=== PATIENT | female | born 1990 | race Caucasian/White ===

== ENCOUNTER 2024-12-04 06:22 | Emergency (ER) | payer MEDICAID, OTHER ==
[~2024-12-04] VITALS: Ht 172.7 cm; Wt 64.0 kg
--- NOTE | 2024-12-04 07:12 | ED.PDOC ---
History of Present Illness HPI Comments 33-year-old female with PMHx Kidney Infections presents with a chief complaint of flank pain x onset this morning. Patient states that her pain is localized to her left flank, radiating into her LUQ abdomen, describes as sharp, and rates her pain a 8/10. Patient mentions that she has had kidney infections before in the past and that this pain feels similar to that. Chief Complaint: Flank Pain Time Seen by MD: 06:56 Primary Care Provider: UNKNOWN Reviewed Notes: Medications, Allergies Allergies: Coded Allergies: NO KNOWN ALLERGIES (Unverified , 12/15/10) Information Source: Patient Mode of Arrival: Ambulatory Severity: Moderate Timing: Days Duration: Since onset Prehospital treatment: None Past Medical History PAST MEDICAL HISTORY: Depression, Denies Surgical History: Denies all surgeries Family History Family History: Unknown Social History Smoker: Non-Smoker Alcohol: Denies ETOH Use Drugs: Denies Drug Use Lives In: Home Constitutional: denies: chills, diaphoresis, fatigue, fever, malaise, sweats, weakness, others EENTM: denies: blurred vision, double vision, ear bleeding, ear discharge, ear drainage, ear pain, ear ringing, eye pain, eye redness, hearing loss, mouth pain, mouth swelling, nasal discharge, nose bleeding, nose congestion, nose pain, photophobia, tearing, throat pain, throat swelling, voice changes, others Respiratory: denies: cough, hemoptysis, orthopnea, SOB at rest, shortness of breath, SOB with excertion, stridor, wheezing, others Cardiovascular: denies: chest pain, dizzy spells, diaphoresis, Dyspnea on exertion, edema, irregular heart beat, left arm pain, lightheadedness, palpitations, PND, syncope, others Gastrointestinal: denies: abdomen distended, abdominal pain, blood streaked bowels, constipated, diarrhea, dysphagia, difficulty swallowing, hematemesis, m mindy, nausea, poor appetite, poor fluid intake, rectal bleeding, rectal pain, vomiting, others Genitourinary: reports: flank pain; denies: abnormal vagina bleeding, burning, dyspareunia, dysuria, frequency, hematuria, incontinence, pain, , vagina discharge, urgency, others Neurological: denies: dizziness, fainting, headache, left sided numbness, left sided weakness, numbness, paresthesia, pre-existing deficit, right sided numbness, right sided weakness, seizure, speech problems, tingling, tremors, weakness, others Musculoskeletal: denies: back pain, gout, joint pain, joint swelling, muscle pain, muscle stiffness, neck pain, others Integumetry: denies: bruises, change in color, change in hair/nails, dryness, laceration, lesions, lumps, rash, wounds, others Allergic/Immunocompromised: denies: Difficulty Healing, Frequent Infections, Hives, Itching, others Hematologic/Lymphatic: denies: anemia, blood clots, easy bleeding, easy bruising, swollen glands, others Endocrine: denies: excessive hunger, excessive sweating, excessive thirst, excessive urination, flushing, intolerance to cold, intolerance to heat, unexplained weight gain, unexplained weight loss, others Psychiatric: denies: anxiety, bipolar disorder, depression, hopeless, panic disorder, schizophrenia, sleepless, suicidal, others All Other Systems: Reviewed and Negative Physical Exam General Appearance: Moderate Distress, Normal HEENT: Normal ENT Inspection, Pharynx Normal, TMs Normal Neck: Full Range of Motion, Non-Tender, Normal, Normal Inspection Respiratory: Chest Non-Tender, Lungs Clear, No Accessory Muscle Use, No Respiratory Distress, Normal Breath Sounds Cardiovascular: No Edema, No JVD, No Murmur, No Gallop, Normal Peripheral Pulses, Regular Rate/Rhythm Breast Exam: Deferred Gastrointestinal: No Organomegaly, Non Tender, No Pulsatile Mass, Normal Bowel Sounds, Soft Genitalia: Deferred Pelvic: Deferred Rectal: Deferred Extremities: No calf tenderness, Normal capillary refill, Normal inspection, Normal range of motion, Non-tender, No pedal edema Musculoskeletal : Apperance: Normal Neurologic: Alert, 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 Was a procedure done?: No Differential Dx Considerations may include: Urinary tract infection X-Ray, Labs, Meds, VS Vital Signs Date Time Temp Pulse Resp B/P (MAP) Pulse Ox O2 Delivery O2 Flow Rate FiO2 12/04/24 06:23 98.7 79 20 102/63 (76) 97 98.7 Lab Test 12/04/24 06:41 Range/Units Urine Color Light-yellow Yellow Urine Clarity Hazy H Clear Urine pH 5.5 5.0-9.0 Urine Specific [place] 1.011 1.001-1.035 Urine Protein Negative Negative Urine Ketones Negative Negative Urine Blood 1+ H Negative /uL Urine Nitrite Negative Negative Urine Bilirubin Negative Negative Urine Urobilinogen Normal Negative mg/dL Urine Leukocyte Esterase 2+ Negative /uL Urine RBC 3 0 - 4 /hpf Urine Microscopic WBC 61 H 0-5 /HPF Urine Squamous Epithelial Cells Few <5 /hpf Urine Bacteria Few H None Seen /hpf Urine Glucose Normal Normal mg/dL Patient alert. Complaining of urinary frequency. Vitals stable. Answering all questions. Possible urinary tract infection. Saturation pristine on room air. No sign of distress. Was given prescription of Macrobid antibiotic. Explained to the patient. Was told to follow up with her primary care physician. Was told to come back if there is any problem. Time of 1ST Reevaluation: 07:26 Reevaluation 1ST: Unchanged Patient Education/Counseling: Diagnosis, Treatment, Need For Follow Up Family Education/Counseling: No Family Present SEPSIS Sepsis Screen Date sepsis recognized/suspect: Dec 04, 2024 Time Sepsis recognized/suspect: 637 Recent Procedure: No On Antibiotic Therapy: No Respiratory Rate >20: No Heart Rate >90: No Temp<36 C (96.8 F) or >38.3 C: No SBP <90 or MAP <65 mmHG: No New Acute Mental Status Change: No Is the patient on CPAP, BIPAP,: No Vital Signs Date Time Temp Pulse Resp B/P (MAP) Pulse Ox O2 Delivery O2 Flow Rate FiO2 12/04/24 06:23 98.7 79 20 102/63 (76) 97 98.7 Departure 1 Departure Time of Disposition: 07:23 Impression: Primary Impression: Urinary tract infection Qualified Codes: N30.00 - Acute cystitis without hematuria Disposition: 01 HOME / SELF CARE / HOMELESS Condition: Good e-Prescriptions Nitrofurantoin Monohydrate Mac (Macrobid) 100 Mg Cap 100 MG PO BID for 7 Days, #14 CAP Prov: ELSY SANDERSON MD 12/04/24 Discharged With: Self Critical Care Note Critical Care Time?: No Stability Stability form required: No Heart Score Heart Score: Heart Score Response (Comments) Value History N/A 0 EKG N/A 0 Age N/A 0 Risk Factors N/A 0 Troponin N/A 0 Total 0 I personally scribed for ELSY SANDERSON MD ([email or web address]) on 12/04/24 at 07:12. Electronically submitted by Kayden Navarro ([email or web address]). ELSY SANDERSON MD Dec 04, 2024 07:12
[2024-12-04 07:22] LABS: Urine Bacteria FEW /hpf (None Seen); Urine Blood 1+ /uL (Negative); Urine Color Light-Yellow (Yellow); Urine Protein, UAD Negative (Negative); Urine Specific Gravity 1.011 (1.001-1.035); Urine Squamous Epithelial Cell FEW /hpf (<5); Urine Urobilinogen Normal (Negative); Urine WBC 61 /HPF (0-5); Urine pH 5.5 (5.0-9.0)
[2024-12-04 07:27] LABS: Urine Clarity Hazy (Clear)
[2024-12-04] MEDS ORDERED: NITR-87 PO (08:00)
[2024-12-04 08:10] VITALS: BP 118/74; PULSE 83; RESP 18; TEMP 98.1; O2SAT 98
== END 2024-12-04 08:13 | disposition home or self-care (01) ==
LOC: ER 06:22
DX: N39.0 Urinary tract infection, site not specified (principal)
CPT/HCPCS: 81001

== ENCOUNTER 2024-12-05 12:59 | Inpatient (IN) | payer MEDICAID ==
[~2024-12-05] VITALS: Ht 172.7 cm; Wt 65.0 kg
[~2024-12-05 12:59] MED LIST: NITR-87 PO
--- NOTE | 2024-12-05 13:34 | ED.PDOC ---
History of Present Illness HPI Comments 33-year-old female came to the ER stating that she has been having fever chills since last night. She was seen here for suprapubic discomfort yesterday was given prescription of antibiotic sent home for urinary tract infection. She went home took two tablets of antibiotic. States that antibiotics do not help and she started to have chills shaking since last night continues to this morning. Denies any past medical history. Denies any other symptoms. 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 Family History Family History: Unknown Social History Smoker: Non-Smoker Alcohol: Denies ETOH Use Drugs: Denies Drug Use Lives In: Home Constitutional: reports: chills, fever; denies: diaphoresis, fatigue, malaise, sweats, weakness, others EENTM: denies: blurred vision, double vision, ear bleeding, ear discharge, ear drainage, ear pain, ear ringing, eye pain, eye redness, hearing loss, mouth pain, mouth swelling, nasal discharge, nose bleeding, nose congestion, nose pain, photophobia, tearing, throat pain, throat swelling, voice changes, others Respiratory: denies: cough, hemoptysis, orthopnea, SOB at rest, shortness of breath, SOB with excertion, stridor, wheezing, others Cardiovascular: denies: chest pain, dizzy spells, diaphoresis, Dyspnea on exertion, edema, irregular heart beat, left arm pain, lightheadedness, p alpitations, PND, syncope, others Gastrointestinal: denies: abdomen distended, abdominal pain, blood streaked bowels, constipated, diarrhea, dysphagia, difficulty swallowing, hematemesis, melena, nausea, poor appetite, poor fluid intake, rectal bleeding, rectal pain, vomiting, others Genitourinary: denies: abnormal vagina bleeding, burning, dyspareunia, dysuria, flank pain, frequency, hematuria, incontinence, pain, , vagina discharge, urgency, others Neurological: denies: dizziness, fainting, headache, left sided numbness, left sided weakness, numbness, paresthesia, pre-existing deficit, right sided numbness, right sided weakness, seizure, speech problems, tingling, tremors, weakness, others Musculoskeletal: denies: back pain, gout, joint pain, joint swelling, muscle pain, muscle stiffness, neck pain, others Integumetry: denies: bruises, change in color, change in hair/nails, dryness, laceration, lesions, lumps, rash, wounds, others Allergic/Immunocompromised: denies: Difficulty Healing, Frequent Infections, Hives, Itching, others Hematologic/Lymphatic: denies: anemia, blood clots, easy bleeding, easy bruising, swollen glands, others Endocrine: denies: excessive hunger, excessive sweating, excessive thirst, excessive urination, flushing, intolerance to cold, intolerance to heat, unexplained weight gain, unexplained weight loss, others Psychiatric: denies: anxiety, bipolar disorder, depression, hopeless, panic disorder, schizophrenia, sleepless, suicidal, others Physical Exam General Appearance: Moderate Distress HEENT: Normal ENT Inspection, Pharynx Normal, TMs Normal Neck: Full Range of Motion, Non-Tender, Normal, Normal Inspection Respiratory: Chest Non-Tender, Lungs Clear, No Accessory Muscle Use, No Respiratory Distress, Normal Breath Sounds Cardiovascular: No Edema, No JVD, No Murmur, No Gallop, Normal Peripheral Pulses, Tachycardia Breast Exam: Deferred Gastrointestinal: No Organomegaly, Non Tender, No Pulsatile Mass, Normal Bowel Sounds, Soft Genitalia: Deferred Pelvic: Deferred Rectal: Deferred Extremities: No calf tenderness, Normal capillary refill, Normal inspection, Normal range of motion, Non-tender, No pedal edema Musculoskeletal : Apperance: Normal Neurologic: 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 Was a procedure done?: No Differential Dx Considerations may include: Pyelonephritis X-Ray, Labs, Meds, VS Vital Signs Date Time Temp Pulse Resp B/P (MAP) Pulse Ox O2 Delivery O2 Flow Rate FiO2 12/05/24 13:21 99.7 126 17 111/66 (81) 97 99.7 Patient alert. Complaining of fever chills. Vitals stable. Answering all questions. CT of the abdomen. Possible sepsis. Establish intravenous access. Was given fluids. Continue to monitor. Time of 1ST Reevaluation: 13:44 Reevaluation 1ST: Unchanged Patient Education/Counseling: Diagnosis, Treatment, Prognosis, Need For Follow Up Family Education/Counseling: No Family Present SEPSIS Sepsis Screen Date sepsis recognized/suspect: Dec 05, 2024 Time Sepsis recognized/suspect: 1309 Recent Procedure: No On Antibiotic Therapy: No Respiratory Rate >20: No Heart Rate >90: Yes Temp<36 C (96.8 F) or >38.3 C: No SBP <90 or MAP <65 mmHG: No New Acute Mental Status Change: No Is the patient on CPAP, BIPAP,: No Physician Orders Complete Blood Count (12/05/24 13:42) Urinalysis (12/05/24 13:42) Basic Metabolic Panel (12/05/24 13:42) Sodium Chloride 0.9% (12/05/24 13:45) Saline Lock (12/05/24 13:42) Complete Blood Count (12/05/24 13:45) Comprehensive Metabolic Panel (12/05/24 13:45) PTPTT (12/05/24 13:45) Urinalysis (12/05/24 13:45) Chest Portable (12/05/24 13:45) Accucheck (12/05/24 13:45) Lactated Ringer's (12/05/24 13:45) Blood Culture (12/05/24 13:45) Vancomycin 1gm/200ml Pm (12/05/24 13:45) Lactic Acid W/ Reflex Order (12/05/24 14:00) Lactic Acid W/ Reflex Order (12/05/24 16:00) Cefepime 2 Gm Q8hr (12/05/24 14:00) Notify Md If Map <65 Or Bp<90 (12/05/24 13:45) If Map<65 Start Vasopressor (12/05/24 13:45) Ct Ab Pel Wo Con-No Oral Or Iv (12/05/24 13:45) Vital Signs Date Time Temp Pulse Resp B/P (MAP) Pulse Ox O2 Delivery O2 Flow Rate FiO2 12/05/24 13:21 99.7 126 17 111/66 (81) 97 99.7 Departure 1 Departure Time of Disposition: 13:47 Impression: Primary Impression: Sepsis Qualified Codes: A41.9 - Sepsis, unspecified organism Additional Impression: Pyelonephritis Disposition: ADMITTED INPATIENT Admit to: Med Surg Condition: Guarded Critical Care Note Critical Care Time?: No Stability Stability form required: No Heart Score Heart Score: Heart Score Response (Comments) Value History N/A 0 EKG N/A 0 Age N/A 0 Risk Factors N/A 0 Troponin N/A 0 Total 0 ELSY SANDERSON MD Dec 05, 2024 13:34
[2024-12-05] MEDS ORDERED: SODIUM CHLORIDE 0.9% 1,000 ML IV ONE (13:45)
[2024-12-05] MEDS ORDERED: LACTATED RINGER'S 1,900 ML IV ONE (13:45)
[2024-12-05] MEDS ORDERED: CEFEPIME 1GM/ 50ML 50 ML IV SCH (14:00)
[2024-12-05] MEDS: SODIUM CHLORIDE 0.9% 1,900 ML IV ONE (14:01)
[2024-12-05 14:15] LABS: Hematocrit 37.0 % (36.0-46.0); Hemoglobin 12.2 g/dL (12.2-16.2); Mean Corpuscular Hemoglobin 28.4 pg (28.0-32.0); Mean Corpuscular Volume 85.9 fL (80.0-100.0); Nucleated Red Blood Cells % 0.0 %
[2024-12-05 14:29] LABS: Alanine Aminotransferase 11 U/L (7-40); Alkaline Phosphatase 55 U/L (46-116); Anion Gap 13 (5-15); BUN/Creatinine Ratio 9.5 (10.0-20.0); Calcium 9.8 mg/dL (8.7-10.4); Carbon Dioxide 21 mmol/L (20-31); Chloride 104 mmol/L (98-107); Sodium 138 mmol/L (136-145); Total Protein 7.9 g/dL (5.7-8.2)
[2024-12-05 14:30] LABS: Bilirubin, Total 0.8 mg/dL (0.2-1.0)
[2024-12-05 14:31] LABS: Blood Urea Nitrogen 7 mg/dL (9-23); Glucose 109 mg/dL (74-106); Potassium 3.3 mmol/L (3.5-5.1)
[2024-12-05 14:32] LABS: Albumin 4.9 g/dL (3.2-4.8)
[2024-12-05] MEDS: VANCOMYCIN 1GM/200ML PM 200 ML IV ONE (15:15)
[2024-12-05] MEDS ORDERED: VANCOMYCIN PER PHARMACY 0 MG IV SCH (15:15)
[2024-12-05] MEDS: ONDANSETRON HCL 4 MG/2 ML VIAL IV ONE (15:16)
--- NOTE | 2024-12-05 15:16 | DVH ---
CHEST RADIOGRAPH Indication: sob Technique: Single frontal view of the chest was obtained COMPARISON: None FINDINGS: Lines and Tubes: None Lungs: Clear Pleura: No effusion. No pneumothorax. Cardiomediastinal contours: Unremarkable Bones: Unremarkable IMPRESSION: No acute disease.
[2024-12-05 15:18] LABS: INR 1.14 (0.9-1.15); Partial Thromboplastin Time 27.6 SEC (24.5-34.5); Prothrombin Time 11.9 sec (9.3-11.8)
[2024-12-05 15:24] LABS: Lactic Acid w/Reflex 2.2 mmol/L (0.4-2.0)
--- NOTE | 2024-12-05 15:39 | DVH ---
Exam: CT CT AB PEL WO CON-NO ORAL OR IV History: cystitis Comparison Study: None Technique: Multidetector spiral CT of the abdomen and pelvis was performed from lung bases to pubic symphysis. Imaging was performed without IV contrast. Axial, coronal and sagittal multiplanar reform ats were obtained from the axial data set by the technologist. Radiation dose : Abdomen/Pelvis: CTDIvol 6 mGy, DLP 366 mGy*cm. Findings: Evaluation of solid organs is limited due to lack of intravenous contrast use. Lung Bases: No acute or significant lung base finding. Normal heart size. No pleural or pericardial effusion. Liver: The liver is normal in size. No focal lesions. Gallbladder and biliary Tree: Unremarkable Spleen: Unremarkable Pancreas: The pancreas is grossly normal in appearance. Adrenal Glands: Unremarkable Kidneys: Kidneys are grossly normal without calculi or hydronephrosis. Bladder: Grossly unremarkable for degree of distention. Bowel: The stomach is grossly normal in appearance. Small bowel and colon are normal in caliber and d istribution. The appendix is not visualized; however, no secondary findings of acute appendicitis salvador ntified. Ascites: Free fluid in the pelvis is likely physiologic. Lymphadenopathy: No mesenteric, retroperitoneal or periportal lymphadenopathy. Abdominal wall and Mesentery: Unremarkable. Vasculature: The visualized abdominal aorta is normal in size and caliber. Evaluation of abdominal a nd pelvic vessels is limited due to lack of intravenous contrast. Pelvic Organs: Intrauterine device in place. Musculoskeletal: No aggressive focal bony lesions, acute fractures or dislocation. IMPRESSION: 1. No acute abdominal or pelvic findings. Radiation optimization: All CT scans at this facility use at least one of these dose optimization brandy hniques: Automated exposure control mA and/or kV adjustment per patient size (includes targeted exams where dose is matched to clinical indication) or iterative reconstruction. HS:Y
[2024-12-05] MEDS: MORPHINE SULFATE 4 MG/ML SYR/VIAL IV ONE (15:43)
[2024-12-05 15:51] VITALS: PULSE 117; RESP 19; O2SAT 98
[2024-12-05] MEDS: CEFEPIME 1GM/ 50ML 50 ML IV ONE (16:09)
[2024-12-05] MEDS: ACETAMINOPHEN 500 MG TAB or CAP PO ONE (16:23)
[2024-12-05] MEDS: SODIUM CHLORIDE 0.9% 1,000 ML IV SCH (16:24)
[2024-12-05] MEDS ORDERED: NITROGLYCERIN 0.4 MG SL TAB SL PRN (18:30)
--- NOTE | 2024-12-05 18:31 | DVHHP2 ---
History of Present Illness Reason for Visit: Sepsis, unspecified organism History of Present Illness The patient is a 33-year-old female with past medical history of depression who presented to [facility] ED with complaint of suprapubic pain. Patient reports that she has been experiencing fever, chills, nausea, vomiting, getting worse that prompted this visit. Patient was here in our facility yesterday with similar symptoms and was given prescription of antibiotics and sent home for urinary tract infection. However, she states antibiotic is not helping with her symptoms. Patient was seen and evaluated in the ED, laboratory data shows WBC 20.7, platelets 291, sodium 138, potassium 3.3, BUN 7, creatinine 0.74, glucose 109, calcium 9.8, albumin 4.9, lactic acid 2.2, blood pressure 75/42 trending up to 93/55, heart rate 110, temperature 100.6 F trending down to 98.8 F, O2 saturation 98% on room air. Abdomen/pelvis CT showed no acute abdominal or pelvic findings. Patient was started on IV antibiotic regimen vancomycin, please see medication orders section in the computer. On my assessment, patient denied chest pain, no headache, no dizziness, no diaphoresis, no shortness of breaths, no abdominal pain, nausea, or vomiting at this moment, no fever, no chills at this moment. Patient was admitted for further evaluation and medical management. Past Medical History Depression Past Surgical History Denies all surgeries Family History Reviewed, noncontributory to the management of this case. Past Social History The patient lives at home, denies smoking, alcohol or illicit drugs abuse. Review of Systems Constitutional: Yes: Fever, Chills, Weakness; No: Sweats, Malaise, Other Eyes: No: Pain, Vision change, Conjunctivae inflammation, Eyelid inflammation, Other, Redness ENT: No: Ear pain, Ear discharge, Nose pain, Nose discharge, Nose congestion, Mouth pain, Mouth swelling, Throat pain, Throat swelling, Other Respiratory: No: Cough, Dry, Shortness of breath, SOB with excertion, Wheezing, Hemoptysis, Pleuritic Pain, Sputum, Wheezing, Other Cardiovascular: No: Chest Pain, Palpitations, Orthopnea, Paroxysmal Noc. Dyspnea, Edema, Lt Headedness, Other Gastrointestinal: Nausea, Vomiting, Abdominal Pain; No: Diarrhea, Constipation, Melena, Hematochezia, Other Genitourinary: No Dysuria, No Frequency, No Incontinence, No Hematuria, No Retention, No Other Musculoskeletal: No: other, neck pain, shoulder pain, arm pain, back pain, hand pain, leg pain, foot pain Skin: No: Rash, Lesions, Jaundice, Bruising, Other Neurological: No: Weakness, Numbness, Incoordination, Change in speech, Confusion, Seizures, Other Allergies: Coded Allergies: NO KNOWN ALLERGIES (Unverified , 12/15/10) Medications Current Medications Medications Dose Ordered Sig/Ang Route Start Time Stop Time Status Last Admin Dose Admin Cefepime HCl 50 ml @ 12.5 mls/hr Q8H IV 12/05/24 22:00 Sodium Chloride 1,000 ml @ 60 mls/hr [id number] IV 12/05/24 15:15 12/05/24 16:24 60 MLS/HR Acetaminophen/ Hydrocodone Bitart 1 tab Q4HP PRN PO 12/05/24 15:15 Ondansetron HCl 4 mg Q4HP PRN IV 12/05/24 15:15 Docusate Sodium 100 mg BIDPRN PRN PO 12/05/24 15:15 Acetaminophen 650 mg Q6HP PRN PO 12/05/24 15:15 Vancomycin HCl 0 ml @ 0 mls/hr UD IV 12/05/24 15:15 Vancomycin HCl 150 ml @ 150 mls/hr Q8H IV 12/05/24 20:00 Exam Vital Signs Vital Signs Date Time Temp Pulse Resp B/P (MAP) Pulse Ox O2 Delivery O2 Flow Rate FiO2 12/05/24 18:07 98.8 107 17 93/55 (68) 97 98.8 12/05/24 15:51 Room Air* 0 21 General Appearance: Alert, Oriented X3, Cooperative, No acute distress HEENT: Atraumatic, PERRLA, EOMI, Mucous membr. moist/pink Respiratory: Clear to auscultation, Normal air movement Cardiovascular: Regular rate, Normal S1, Normal S2, No murmurs Abdominal: Normal bowel sounds, Soft, No tenderness, No hepatospenomegaly, No masses Extremities: No clubbing, No cyanosis, No edema, Normal pulses, No tenderness/swelling Skin: No rashes, No breakdown, No significant lesion Neuro: Normal speech, Normal tone, Sensation intact, Cranial nerves 3-12 NL, Reflexes 2+, Other (Generalized weakness) Psych/Mental Status: Mental status NL, Mood NL Labs/Xrays Labs Test 12/05/24 17:16 12/05/24 14:49 12/05/24 13:59 Range/Units Lactic Acid Level 0.7 0.4-2.0 mmol/L Prothrombin Time 11.9 H 9.3-11.8 sec Prothrombin Time INR 1.14 0.9-1.15 Activated Partial Thromboplast Time 27.6 24.5-34.5 SEC White Blood Count 20.7 H 4.4-10.8 10^3/uL Red Blood Count 4.30 4.0-5.20 10^6/uL Hemoglobin 12.2 12.2-16.2 g/dL Hematocrit 37.0 36.0-46.0 % Mean Corpuscular Volume 85.9 80.0-100.0 fL Mean Corpuscular Hemoglobin 28.4 28.0-32.0 pg Mean Corpuscular Hemoglobin Concent 33.1 32.0-36.0 g/dL Red Cell Distribution Width 15.6 H 11.8-14.3 % Platelet Count 291 140-450 10^3/uL Mean Platelet Volume 7.4 6.9-10.8 fL Neutrophils (%) (Auto) 90.1 H 37.0-80.0 % Lymphocytes (%) (Auto) 3.7 L 10.0-50.0 % Monocytes (%) (Auto) 6.0 0.0-12.0 % Eosinophils (%) (Auto) 0.0 0.0-7.0 % Basophils (%) (Auto) 0.2 0.0-2.0 % Neutrophils # (Auto) 18.7 H 1.6-8.6 10 ^3/uL Lymphocytes # (Auto) 0.8 0.4-5.4 10 ^3/uL Monocytes # (Auto) 1.2 0-1.3 10 ^3/uL Eosinophils # (Auto) 0 0-0.8 10 ^3/uL Basophils # (Auto) 0 0-0.2 10 ^3/uL Nucleated Red Blood Cells 0.0 % Sodium Level 138 136-145 mmol/L Potassium Level 3.3 L 3.5-5.1 mmol/L Chloride Level 104 98-107 mmol/L Carbon Dioxide Level 21 20-31 mmol/L Anion Gap 13 5-15 Blood Urea Nitrogen 7 L 9-23 mg/dL Creatinine 0.74 0.550-1.02 mg/dL Glomerular Filtration Rate Calc 111 >90 mL/min BUN/Creatinine Ratio 9.5 L 10.0-20.0 Serum Glucose 109 H 74-106 mg/dL Calcium Level 9.8 8.7-10.4 mg/dL Total Bilirubin 0.8 0.2-1.0 mg/dL Aspartate Amino Transferase (AST) 16 13-40 U/L Alanine Aminotransferase (ALT) 11 7-40 U/L Alkaline Phosphatase 55 46-116 U/L Total Protein 7.9 5.7-8.2 g/dL Albumin 4.9 H 3.2-4.8 g/dL PATIENT: JEANNE GALARZA ACCT: [id number] UNIT: [id number] : 1990 LOC: ER ROOM / BED: / AGE / SEX: 33 / F ADM STATUS: REG ER SERVICE 1345 ORDERING PHYSICIAN: ELSY SANDERSON MD PROCEDURE(s): ABPL - CT AB PEL WO CON-NO ORAL OR IV REASON: cystitis ORDER NUMBER(s): [id number], ACCESSION NUMBER(s): [id number] Exam: CT CT AB PEL WO CON-NO ORAL OR IV History: cystitis Comparison Study: None Technique: Multidetector spiral CT of the abdomen and pelvis was performed from lung bases to pubic symphysis. Imaging was performed without IV contrast. Axial, coronal and sagittal multiplanar reformats were obtained from the axial data set by the technologist. Radiation dose : Abdomen/Pelvis: CTDIvol 6 mGy, DLP 366 mGy*cm. Findings: Evaluation of solid organs is limited due to lack of intravenous contrast use. Lung Bases: No acute or significant lung base finding. Normal heart size. No pleural or pericardial effusion. Liver: The liver is normal in size. No focal lesions. Gallbladder and biliary Tree: Unremarkable Spleen: Unremarkable Pancreas: The pancreas is grossly normal in appearance. Adrenal Glands: Unremarkable Kidneys: Kidneys are grossly normal without calculi or hydronephrosis. Bladder: Grossly unremarkable for degree of distention. Bowel: The stomach is grossly normal in appearance. Small bowel and colon are normal in caliber and distribution. The appendix is not visualized; however, no secondary findings of acute appendicitis identified. Ascites: Free fluid in the pelvis is likely physiologic. Lymphadenopathy: No mesenteric, retroperitoneal or periportal lymphadenopathy. Abdominal wall and Mesentery: Unremarkable. Vasculature: The visualized abdominal aorta is normal in size and caliber. Ev aluation of abdominal and pelvic vessels is limited due to lack of intravenous contrast. Pelvic Organs: Intrauterine device in place. Musculoskeletal: No aggressive focal bony lesions, acute fractures or dislocation. IMPRESSION: 1. No acute abdominal or pelvic findings. ORDERING PHYSICIAN: ELSY SANDERSON MD PROCEDURE(s): CXRP - CHEST PORTABLE REASON: sob ORDER NUMBER(s): [id number], ACCESSION NUMBER(s): [id number] CHEST RADIOGRAPH Indication: sob Technique: Single frontal view of the chest was obtained COMPARISON: None FINDINGS: Lines and Tubes: None Lungs: Clear Pleura: No effusion. No pneumothorax. Cardiomediastinal contours: Unremarkable Bones: Unremarkable IMPRESSION: No acute disease. Assessment/Plan Assessment/Plan Sepsis, unspecified organism Hypokalemia Intractable nausea and vomiting Plan 1. Admit to telemetry unit 2. Breathing treatment 3. Pain control management 4. IV antibiotic management 5. Management of fluids and electrolytes 6. Consultation for hospitalist 7. Diagnostic test abdomen/pelvis CT 8. DVT prophylaxis-on SCDs 9. Repeat labs CBC, CMP in a.m. 10. Home medication reviewed and reconciled 11. Continue with current medical management 12. Treatment plan discussed with patient and RN. Patient verbalized understanding. Plan discussed with: Patient, Other (RN) My Orders Orders - MAHESH FINCH DNP Procedure Category Date Status Time Allergies CHLOE 12/05/24 In Process 15:09 Code Status CODE 12/05/24 Transmitted 15:09 Sodium Chloride 0.9% PHA 12/05/24 In Process 15:15 Oxygen Per Hour RT 12/05/24 Transmitted 15:09 Hydrocodone-Acet PHA 12/05/24 In Process 5/325mg Tab ([place] 15:15 Ondansetron Hcl PHA 12/05/24 In Process (Zofran) 15:15 Docusate Sodium PHA 12/05/24 In Process Capsule ([place]ace 15:15 Complete Blood Count LAB 12/06/24 Verified 04:00 Comprehensive LAB 12/06/24 Verified Metabolic Panel 04:00 Condition: Serious CHLOE 12/05/24 In Process 15:09 Acetaminophen Tablet [facility] 12/05/24 In Process (Tylenol Tablet) 15:15 Clear Liq Diet DIET 12/05/24 Transmitted Dinner Bedrest With Bathroom [facility] [place] 12/05/24 In Process Privileg 15:09 Sequential CHLOE 12/05/24 In Process Compression Device Vancomycin Per PHA 12/05/24 In Process Pharmacy 15:15 Vancomycin [facility] 12/05/24 In Process 750mg/150ml 20:00 Vancomycin,Trough LAB 12/06/24 Verified 11:00 Problem List: (1) Sepsis, unspecified organism (2) Hypokalemia (3) Intractable nausea and vomiting Date of Service: Dec 05, 2024 Billing Provider: MAHESH FINCH DNP Common Visit Codes: [id number] INP/OBS CARE (HIGH) MAHESH FINCH DNP Dec 05, 2024 18:31
[2024-12-05 18:48] LABS: Urine Protein, UAD Negative (Negative)
[2024-12-05 19:55] VITALS: O2SAT 95
[2024-12-05] MEDS: VANCOMYCIN 750mg/150ml 150 ML IV SCH (20:00)
[2024-12-05] MEDS: HYDROcodone-ACET 5/325MG TAB PO PRN (20:50)
[2024-12-05] MEDS: ACETAMINOPHEN 325 MG TAB PO PRN (20:50)
[2024-12-05] MEDS: POTASSIUM CHL 20 Meq TABLET PO ONE (23:50)
[2024-12-05] MEDS: CEFEPIME 1GM/ 50ML 50 ML IV SCH (23:50)
[2024-12-06] VITALS (7 sets, daily range): BP systolic 102–116; BP diastolic 61–74; PULSE 60–113; RESP 14–19; TEMP 98–101.7; O2SAT 98–99
[2024-12-06] MEDS: MORPHINE SULFATE INJ 2 MG/ml SYRG IV PRN (01:34)
[2024-12-06] MEDS: ONDANSETRON HCL 4 MG/2 ML VIAL IV PRN (01:35)
[2024-12-06 04:58] LABS: Hematocrit 32.7 % (36.0-46.0); Hemoglobin 11.0 g/dL (12.2-16.2); Mean Corpuscular Hemoglobin 28.7 pg (28.0-32.0); Mean Corpuscular Volume 85.4 fL (80.0-100.0); Nucleated Red Blood Cells % 0.0 %
[2024-12-06 05:17] LABS: Alanine Aminotransferase 10 U/L (7-40); Albumin 3.8 g/dL (3.2-4.8); Alkaline Phosphatase 50 U/L (46-116); Anion Gap 7 (5-15); BUN/Creatinine Ratio 10.9 (10.0-20.0); Carbon Dioxide 23 mmol/L (20-31); Potassium 3.7 mmol/L (3.5-5.1); Sodium 140 mmol/L (136-145); Total Protein 6.2 g/dL (5.7-8.2)
[2024-12-06 05:18] LABS: Bilirubin, Total 0.6 mg/dL (0.2-1.0)
[2024-12-06 05:28] LABS: Blood Urea Nitrogen 6 mg/dL (9-23); Calcium 8.1 mg/dL (8.7-10.4); Chloride 110 mmol/L (98-107); Glucose 115 mg/dL (74-106)
--- NOTE | 2024-12-06 17:06 | DVHPN2 ---
Subjective Patient reports having generalized weakness. Reviewed: Care Plan, H&P, Labs, Medications Changes from previous H/P or p: No Changes General: Per HPI Eyes: No Pain, No Vision change, No Conjunctivae inflammation, No Eyelid inflammation, No Other, No Redness ENT: No Ear pain, No Ear discharge, No Nose pain, No Nose discharge, No Nose congestion, No Mouth pain, No Mouth swelling, No Throat pain, No Throat swelling, No Other Cardiovascular: No Chest Pain, No Palpitations, No Orthopnea, No Paroxysmal Noc. Dyspnea, No Edema, No Lt Headedness, No Other Respiratory: No Cough, No Dry, No Shortness of breath, No SOB with excertion, No Wheezing, No Hemoptysis, No Pleuritic Pain, No Sputum, No Other Gastrointestinal: Nausea, Vomiting, Abdominal Pain; No Diarrhea, No Constipation, No Melena, No Hematochezia, No Other Genitourinary: No Dysuria, No Frequency, No Incontinence, No Hematuria, No Retention, No Other Musculoskeletal: No other, No neck pain, No shoulder pain, No arm pain, No back pain, No hand pain, No leg pain, No foot pain Skin: No Rash, No Lesions, No Jaundice, No Bruising, No Other Objective Vitals Vital Signs Date Time Temp Pulse Resp B/P (MAP) Pulse Ox O2 Delivery O2 Flow Rate FiO2 12/06/24 10:49 98.0 60 18 102/62 (75) 98 98.0 12/06/24 08:00 Room Air* 0 21 Intake/Output Intake and Output 12/06/24 07:00 Intake Total 2330 ml Balance 2330 ml Intake IV Total 2330 ml General Appearance: Alert, Oriented X3, Cooperative, No acute distress HEENT: Atraumatic, PERRLA Lungs: Normal air movement Cardiovascular: Normal S1, Normal S2 Abdomen: Normal bowel sounds, Soft, No tenderness, No hepatospenomegaly Musculoskeletal: Normal sensory function, Normal motor function Neuro: Normal speech Skin: Dry, Intact Psych/Mental Status: Mental status NL, Mood NL Medications Current Medications Medications Dose Ordered Sig/Ang Route Start Time Stop Time Status Last Admin Dose Admin Cefepime HCl 50 ml @ 12.5 mls/hr Q8H IV 12/05/24 22:00 12/06/24 13:53 12.5 MLS/HR Sodium Chloride 1,000 ml @ 60 mls/hr [id number] IV 12/05/24 15:15 12/05/24 16:24 60 MLS/HR Acetaminophen/ Hydrocodone Bitart 1 tab Q4HP PRN PO 12/05/24 15:15 12/06/24 06:48 1 TAB Ondansetron HCl 4 mg Q4HP PRN IV 12/05/24 15:15 12/06/24 14:39 4 MG Docusate Sodium 100 mg BIDPRN PRN PO 12/05/24 15:15 Acetaminophen 650 mg Q6HP PRN PO 12/05/24 15:15 12/06/24 06:48 650 MG Vancomycin HCl 0 ml @ 0 mls/hr UD IV 12/05/24 15:15 Vancomycin HCl 150 ml @ 150 mls/hr Q8H IV 12/05/24 20:00 12/06/24 12:12 150 MLS/HR Nitroglycerin 0.4 mg Q5MINP PRN SL 12/05/24 18:30 Morphine Sulfate 2 mg Q30M PRN IV 12/05/24 18:30 12/06/24 06:51 2 MG Laboratory Results Laboratory Tests 12/06/24 04:31 Chemistry Test 12/06/24 04:31 Albumin 3.8 g/dL (3.2-4.8) Calcium Level 8.1 mg/dL (8.7-10.4) L Total Protein 6.2 g/dL (5.7-8.2) LFT Test 12/06/24 04:31 Alanine Aminotransferase (ALT) 10 U/L (7-40) Alkaline Phosphatase 50 U/L (46-116) Aspartate Amino Transferase (AST) 11 U/L (13-40) L Total Bilirubin 0.6 mg/dL (0.2-1.0) Urinalysis Test 12/05/24 18:05 Urine Color Light-yellow (Yellow) Urine Clarity Clear (Clear) Urine pH 6.0 (5.0-9.0) Urine Specific [place] 1.011 (1.001-1.035) Urine Protein Negative (Negative) Urine Ketones 3+ (Negative) H Urine Blood Negative /uL (Negative) Urine Nitrite Negative (Negative) Urine Bilirubin Negative (Negative) Urine Urobilinogen Normal mg/dL (Negative) Urine Leukocyte Esterase Negative /uL (Negative) Urine RBC 4 /hpf (0 - 4) Urine Microscopic WBC 4 /HPF (0-5) Urine Squamous Epithelial Cells Few /hpf (<5) Urine Bacteria Few /hpf (None Seen) H Urine Mucus Few (None Seen) Urine Glucose Normal mg/dL (Normal) Microbiology Microbiology Date/Time Source Procedure Growth Status 12/05/24 14:05 Blood Blood Culture - Preliminary NO GROWTH AFTER 24 HOURS OF INCUBATION. Resulted Labs and/or images reviewed: Labs reviewed by me, Image(s) reviewed by me Assessment/Plan Assessment/Plan Impression: -sepsis, unknown etiology -? UTI/pyelonephritis -? Bacteremia. Rule out contamination on redraw -? Drug reaction to Macrobid Plan: -continue empiric antibiotic therapy -repeat blood culture -UDS -IV hydration -repeat labs in a.m. Total time spent with patient discussing and formulating plan of care: 35 minutes. This medical document was created using an electronic medical record system with [employer] dictation system. Although this document has been carefully reviewed, there may still be some phonetic and typographical errors. These areas are purely typographical due to imperfections of the software programs, and do not reflect any compromise in the patient's medical care. Plan discussed with: Patient, Other (RN) My Orders Orders - CARITO LIRIANO NP Procedure Category Date Status Time Regular Diet DIET 12/06/24 Transmitted Lunch Date of Service: Dec 06, 2024 Billing Provider: CARITO LIRIANO NP Common Visit Codes: [id number] INP/OBS CARE(HIGH) CARITO LIRIANO NP Dec 06, 2024 17:06
[2024-12-06] MEDS: SODIUM CHLORIDE 0.9% 1,000 ML IV SCH (19:27)
[2024-12-06] MEDS: DOCUSATE SOD 100 MG CAP PO PRN (20:10)
[2024-12-07] VITALS (8 sets, daily range): BP systolic 95–116; BP diastolic 49–73; PULSE 70–100; RESP 14–16; TEMP 97.6–99.1; O2SAT 96–100
[2024-12-07 06:31] LABS: Hematocrit 31.2 % (36.0-46.0); Hemoglobin 10.3 g/dL (12.2-16.2); Mean Corpuscular Hemoglobin 28.4 pg (28.0-32.0); Mean Corpuscular Volume 85.5 fL (80.0-100.0); Nucleated Red Blood Cells % 0.0 %
--- NOTE | 2024-12-07 10:29 | DVHPN2 ---
Subjective Patient reports having generalized weakness. Reviewed: Care Plan, H&P, Labs, Medications Changes from previous H/P or p: No Changes General: Per HPI Eyes: No Pain, No Vision change, No Conjunctivae inflammation, No Eyelid inflammation, No Other, No Redness ENT: No Ear pain, No Ear discharge, No Nose pain, No Nose discharge, No Nose congestion, No Mouth pain, No Mouth swelling, No Throat pain, No Throat swelling, No Other Cardiovascular: No Chest Pain, No Palpitations, No Orthopnea, No Paroxysmal Noc. Dyspnea, No Edema, No Lt Headedness, No Other Respiratory: No Cough, No Dry, No Shortness of breath, No SOB with excertion, No Wheezing, No Hemoptysis, No Pleuritic Pain, No Sputum, No Other Gastrointestinal: Nausea, Vomiting, Abdominal Pain; No Diarrhea, No Constipation, No Melena, No Hematochezia, No Other Genitourinary: No Dysuria, No Frequency, No Incontinence, No Hematuria, No Retention, No Other Musculoskeletal: No other, No neck pain, No shoulder pain, No arm pain, No back pain, No hand pain, No leg pain, No foot pain Skin: No Rash, No Lesions, No Jaundice, No Bruising, No Other Objective Vitals Vital Signs Date Time Temp Pulse Resp B/P (MAP) Pulse Ox O2 Delivery O2 Flow Rate FiO2 12/07/24 09:00 97.6 100 16 111/71 (84) 100 97.6 12/07/24 08:00 Room Air* 0 21 Intake/Output Intake and Output 12/07/24 07:00 Intake Total 1380 ml Output Total 2 ml Balance 1378 ml Intake Oral 1000 ml IV Total 380 ml Output Urine Total 2 ml # Voids 2 General Appearance: Alert, Oriented X3, Cooperative, No acute distress HEENT: Atraumatic, PERRLA Lungs: Normal air movement Cardiovascular: Normal S1, Normal S2 Abdomen: Normal bowel sounds, Soft, No tenderness, No hepatospenomegaly Musculoskeletal: Normal sensory function, Normal motor function Neuro: Normal speech Skin: Dry, Intact Psych/Mental Status: Mental status NL, Mood NL Medications Current Medications Medications Dose Ordered Sig/Ang Route Start Time Stop Time Status Last Admin Dose Admin Cefepime HCl 50 ml @ 12.5 mls/hr Q8H IV 12/05/24 22:00 12/07/24 06:03 12.5 MLS/HR Acetaminophen/ Hydrocodone Bitart 1 tab Q4HP PRN PO 12/05/24 15:15 12/07/24 06:10 1 TAB Ondansetron HCl 4 mg Q4HP PRN IV 12/05/24 15:15 12/06/24 14:39 4 MG Docusate Sodium 100 mg BIDPRN PRN PO 12/05/24 15:15 12/06/24 20:10 100 MG Acetaminophen 650 mg Q6HP PRN PO 12/05/24 15:15 12/06/24 16:49 650 MG Vancomycin HCl 0 ml @ 0 mls/hr UD IV 12/05/24 15:15 Vancomycin HCl 150 ml @ 150 mls/hr Q8H IV 12/05/24 20:00 12/07/24 04:26 150 MLS/HR Nitroglycerin 0.4 mg Q5MINP PRN SL 12/05/24 18:30 Morphine Sulfate 2 mg Q30M PRN IV 12/05/24 18:30 12/06/24 06:51 2 MG Sodium Chloride 1,000 ml @ 100 mls/hr Q10H IV 12/06/24 17:00 12/07/24 03:00 100 MLS/HR Laboratory Results Laboratory Tests 12/06/24 04:31 12/07/24 05:54 Urinalysis Test 12/05/24 18:05 Urine Color Light-yellow (Yellow) Urine Clarity Clear (Clear) Urine pH 6.0 (5.0-9.0) Urine Specific [place] 1.011 (1.001-1.035) Urine Protein Negative (Negative) Urine Ketones 3+ (Negative) H Urine Blood Negative /uL (Negative) Urine Nitrite Negative (Negative) Urine Bilirubin Negative (Negative) Urine Urobilinogen Normal mg/dL (Negative) Urine Leukocyte Esterase Negative /uL (Negative) Urine RBC 4 /hpf (0 - 4) Urine Microscopic WBC 4 /HPF (0-5) Urine Squamous Epithelial Cells Few /hpf (<5) Urine Bacteria Few /hpf (None Seen) H Urine Mucus Few (None Seen) Urine Glucose Normal mg/dL (Normal) Microbiology Microbiology Date/Time Source Procedure Growth Status 12/05/24 14:05 Blood Blood Culture - Preliminary Resulted Labs and/or images reviewed: Labs reviewed by me, Image(s) reviewed by me Assessment/Plan Assessment/Plan Impression: -sepsis, secondary to UTI -complicated cystitis -bacteremia with alpha hemolytic strep -? Drug reaction to Macrobid Plan: -events: Patient with fevers yesterday evening. White blood cell count improving. -repeat blood culture pending. Initial blood culture positive in both tubes with alpha hemolytic strep. -UDS pending -stop vancomycin, continue cefepime -IV hydration -repeat labs in a.m. Total time spent with patient discussing and formulating plan of care: 35 minutes. This medical document was created using an electronic medical record system with [employer] dictation system. Although this document has been carefully reviewed, there may still be some phonetic and typographical errors. These areas are purely typographical due to imperfections of the software programs, and do not reflect any compromise in the patient's medical care. Plan discussed with: Patient, Other (RN) My Orders Orders - CARITO LIRIANO NP Procedure Category Date Status Time Regular Diet DIET 12/06/24 Transmitted Lunch Sodium Chloride 0.9% PHA 12/06/24 In Process 17:00 Blood Culture BLAKE 12/06/24 In Process 16:48 Drug Screen LAB 12/06/24 Logged 16:48 Date of Service: Dec 07, 2024 Billing Provider: CARITO LIRIANO NP Common Visit Codes: 89151-FSF/OBS DISCH DAY >30min CARITO LIRIANO NP Dec 07, 2024 10:29
[2024-12-07 13:07] LABS: Amphetamine Screen, Urine Neg (NEGATIVE); Barbiturate Scree,Urine Neg (NEGATIVE); Benzodiazephine Screen, Urine Neg (NEGATIVE); Opiate Scree,Urine Neg (NEGATIVE)
[2024-12-07 13:08] LABS: Cocaine Screen, Urine Neg (NEGATIVE); Phencyclidine Screen, Urine Neg (NEGATIVE)
[2024-12-07 13:09] LABS: Cannabinoid Screen, Urine Neg (NEGATIVE)
[2024-12-07] MEDS ORDERED: InsuLIN REG 1unit/0.01ml Soln (100units/ml) IV ONE (17:00)
[2024-12-07] MEDS ORDERED: FLUO60TA7 PO (18:50)
[2024-12-08 01:00] VITALS: BP 108/65; PULSE 88; RESP 14; TEMP 98.6; O2SAT 97
[2024-12-08 05:00] VITALS: BP 107/61; PULSE 75; RESP 14; TEMP 99.2; O2SAT 97
[2024-12-08 06:30] LABS: Hematocrit 33.4 % (36.0-46.0); Hemoglobin 11.1 g/dL (12.2-16.2); Mean Corpuscular Hemoglobin 28.5 pg (28.0-32.0); Mean Corpuscular Volume 85.5 fL (80.0-100.0); Nucleated Red Blood Cells % 0.0 %
[2024-12-08 06:43] LABS: Anion Gap 7 (5-15); Carbon Dioxide 28 mmol/L (20-31); Chloride 106 mmol/L (98-107); Potassium 3.6 mmol/L (3.5-5.1); Sodium 141 mmol/L (136-145)
[2024-12-08 06:44] LABS: Calcium 9.0 mg/dL (8.7-10.4)
[2024-12-08 06:49] LABS: Glucose 91 mg/dL (74-106)
[2024-12-08 06:54] LABS: BUN/Creatinine Ratio 8.9 (10.0-20.0); Blood Urea Nitrogen < 5 mg/dL (9-23)
[2024-12-08 08:00] VITALS: PULSE 65
[2024-12-08 09:00] VITALS: BP 98/70; PULSE 75; RESP 14; TEMP 99.1; O2SAT 96
[2024-12-08 13:00] VITALS: BP 108/72; PULSE 83; RESP 12; TEMP 98.1; O2SAT 100
[2024-12-08] MEDS ORDERED: CEFD300C2 PO (14:35)
--- NOTE | 2024-12-08 14:38 | DVHDS2 ---
Discharge Summary Date of Admission Dec 05, 2024 at 18:30 Date of Discharge: Dec 08, 2024 Admitting Diagnosis Sepsis unspecified organism Labs/Diagnostic Data: Laboratory Results Test 12/08/24 05:46 12/07/24 12:47 12/06/24 11:22 12/06/24 04:31 White Blood Count 6.0 10^3/uL (4.4-10.8) Red Blood Count 3.91 10^6/uL (4.0-5.20) Hemoglobin 11.1 g/dL (12.2-16.2) Hematocrit 33.4 % (36.0-46.0) Mean Corpuscular Volume 85.5 fL (80.0-100.0) Mean Corpuscular Hemoglobin 28.5 pg (28.0-32.0) Mean Corpuscular Hemoglobin Concent 33.3 g/dL (32.0-36.0) Red Cell Distribution Width 15.4 % (11.8-14.3) Platelet Count 318 10^3/uL (140-450) Mean Platelet Volume 7.6 fL (6.9-10.8) Neutrophils (%) (Auto) 66.7 % (37.0-80.0) Lymphocytes (%) (Auto) 20.1 % (10.0-50.0) Monocytes (%) (Auto) 10.7 % (0.0-12.0) Eosinophils (%) (Auto) 1.7 % (0.0-7.0) Basophils (%) (Auto) 0.8 % (0.0-2.0) Neutrophils # (Auto) 4.0 10 ^3/uL (1.6-8.6) Lymphocytes # (Auto) 1.2 10 ^3/uL (0.4-5.4) Monocytes # (Auto) 0.6 10 ^3/uL (0-1.3) Eosinophils # (Auto) 0.1 10 ^3/uL (0-0.8) Basophils # (Auto) 0.1 10 ^3/uL (0-0.2) Nucleated Red Blood Cells 0.0 % Sodium Level 141 mmol/L (136-145) Potassium Level 3.6 mmol/L (3.5-5.1) Chloride Level 106 mmol/L (98-107) Carbon Dioxide Level 28 mmol/L (20-31) Anion Gap 7 (5-15) Blood Urea Nitrogen < 5 mg/dL (9-23) Creatinine 0.56 mg/dL (0.550-1.02) Glomerular Filtration Rate Calc 124 mL/min (>90) BUN/Creatinine Ratio 8.9 (10.0-20.0) Serum Glucose 91 mg/dL (74-106) Calcium Level 9.0 mg/dL (8.7-10.4) Urine Opiates Screen Neg (NEGATIVE) Urine Fentanyl Screen Neg (NEGATIVE) Urine Barbiturates Screen Neg (NEGATIVE) Urine Phencyclidine Screen Neg (NEGATIVE) Urine Amphetamines Screen Neg (NEGATIVE) Urine Benzodiazepines Screen Neg (NEGATIVE) Urine Cocaine Screen Neg (NEGATIVE) Urine Cannabinoids Screen Neg (NEGATIVE) Vancomycin Level Trough 3.3 ug/mL (5-10) Total Bilirubin 0.6 mg/dL (0.2-1.0) Aspartate Amino Transferase (AST) 11 U/L (13-40) Alanine Aminotransferase (ALT) 10 U/L (7-40) Alkaline Phosphatase 50 U/L (46-116) Total Protein 6.2 g/dL (5.7-8.2) Albumin 3.8 g/dL (3.2-4.8) Test 12/05/24 18:05 12/05/24 17:16 12/05/24 14:49 Urine Color Light-yellow (Yellow) Urine Clarity Clear (Clear) Urine pH 6.0 (5.0-9.0) Urine Specific [place] 1.011 (1.001-1.035) Urine Protein Negative (Negative) Urine Ketones 3+ (Negative) Urine Blood Negative /uL (Negative) Urine Nitrite Negative (Negative) Urine Bilirubin Negative (Negative) Urine Urobilinogen Normal mg/dL (Negative) Urine Leukocyte Esterase Negative /uL (Negative) Urine RBC 4 /hpf (0 - 4) Urine Microscopic WBC 4 /HPF (0-5) Urine Squamous Epithelial Cells Few /hpf (<5) Urine Bacteria Few /hpf (None Seen) Urine Mucus Few (None Seen) Urine Glucose Normal mg/dL (Normal) Lactic Acid Level 0.7 mmol/L (0.4-2.0) Prothrombin Time 11.9 sec (9.3-11.8) Prothrombin Time INR 1.14 (0.9-1.15) Activated Partial Thromboplast Time 27.6 SEC (24.5-34.5) Other Laboratory Tests 12/08/24 05:46 Brief Hx & Hospital Course: History of Present Illness The patient is a 33-year-old female with past medical history of depression who presented to [facility] ED with complaint of suprapubic pain. Patient reports that she has been experiencing fever, chills, nausea, vomiting, getting worse that prompted this visit. Patient was here in our facility yesterday with similar symptoms and was given prescription of antibiotics and sent home for urinary tract infection. However, she states antibiotic is not helping with her symptoms. Patient was seen and evaluated in the ED, laboratory data shows WBC 20.7, platelets 291, sodium 138, potassium 3.3, BUN 7, creatinine 0.74, glucose 109, calcium 9.8, albumin 4.9, lactic acid 2.2, blood pressure 75/42 trending up to 93/55, heart rate 110, temperature 100.6 F trending down to 98.8 F, O2 saturation 98% on room air. Abdomen/pelvis CT showed no acute abdominal or pelvic findings. Patient was started on IV antibiotic regimen vancomycin, please see medication orders section in the computer. On my assessment, patient denied chest pain, no headache, no dizziness, no diaphoresis, no shortness of breaths, no abdominal pain, nausea, or vomiting at this moment, no fever, no chills at this moment. Patient was admitted for further evaluation and medical management. Course of hospitalization: Patient was given IV hydration, empiric antibiotic therapy with vancomycin and Rocephin. Patient grew alpha hemolytic strep in initial blood culture. Patient had antibiotics deescalated to Rocephin as sole coverage. Patient had repeat blood culture which was negative for any growth. Patient has been afebrile, as well as having resolution of leukocytosis. Patient will be discharged home and continued on antibiotic therapy with cefdinir 300 mg p.o. b.i.d. for an additional seven days. She will follow up with the discharge Clinic in one week. Patient was agreeable with discharge plan. All questions answered. Physical examination General: Alert and Oriented x3. No acute distress. Well-nourished. Eyes: EOMI. Anicteric. HENT: Moist mucous membranes. Lungs: Clear to auscultation bilaterally. No accessory muscle use. Cardiovascular: Regular rate and rhythm. No murmur. No JVD. Abdomen: Soft, non-tender and non-distended. No palpable masses. Extremities: No edema. Non-tender. Skin: No rashes or lesions. Warm. Neurologic: No focal neurological deficits. CN II-XII grossly intact, but not individually tested. Psychiatric: Cooperative. Appropriate mood and affect. Total time spent with patient discussing and formulating plan of care: 35 minutes. This medical document was created using an electronic medical record system with [employer] dictation system. Although this document has been carefully reviewed, there may still be some phonetic and typographical errors. These areas are purely typographical due to imperfections of the software programs, and do not reflect any compromise in the patient's medical care. Condition at Discharge: Fair Final Diagnosis/Problems List Sepsis secondary to alpha hemolytic strep Secondary diagnosis: -sepsis, secondary to UTI -complicated cystitis -bacteremia with alpha hemolytic strep -? Drug reaction to Macrobid Discharge Disposition: Home Discharge Instruct/Medications Diet: Regular Activity: No Restrictions, As Tolerated Follow Up/Referral: Discharge Clinic in one week Medications: Cefdinir 300 mg p.o. b.i.d. times seven days Scheduled Cefdinir (Cefdinir), 1 CAP PO BID Fluoxetine HCl (Fluoxetine), 50 MG PO DAILY, (Reported) Nitrofurantoin Monohydrate Mac (Macrobid), 100 MG PO BID 36 Discharge Statement: "Patient was advised to return to the ER or call 911 if any headaches, dizziness, shortness of breath, chest pain, abdominal pain, bleeding, fevers, or worsening of medical condition. Patient was counseled about treatment plan, medications, possible side effects, patientverbalized understanding. All questions were answered to the best of my ability. This discharge took greater then 30 minutes in planning, reviewing documentation, counseling the patient, and discussing with other team members." ASSESSMENT ASSESSMENT Assessment Sepsis secondary to alpha hemolytic strep Date of Service: Dec 08, 2024 Billing Provider: CARITO LIRIANO NP Common Visit Codes: 83169-JXV/OBS DISCH DAY >30min CARITO LIRIANO NP Dec 08, 2024 14:38
[2024-12-08 15:14] VITALS: BP 108/72; PULSE 83; RESP 12; TEMP 98.1; O2SAT 100
== END 2024-12-08 16:00 | disposition home or self-care (01) | DRG 720 ==
LOC: ER 12:59 → OVERFLOW 18:30 → TELE-WESTW 12-06 15:54
PROVIDERS: ADMIT Nurse Practitioner Acute Care; ATTEND Nurse Practitioner Acute Care
DX: A40.8 Other streptococcal sepsis (principal); N30.90 Cystitis, unspecified without hematuria; E87.6 Hypokalemia; T37.8X5A Adverse effect of other specified systemic anti-infectives and antiparasitics, initial encounter; Z91.013 Allergy to seafood; Y92.89 Other specified places as the place of occurrence of the external cause
CPT/HCPCS: 36415; 71045; 74176; 80048; 80053; 80202; 80307; 81001; 82565; 83605; 85025; 85610; 85730; 87040; 87077; 87186; 96361; 96365; G0378; J2405

== ENCOUNTER 2024-12-25 14:49 | Emergency (ER) | payer MEDICAID ==
[~2024-12-25] VITALS: Ht 172.7 cm; Wt 60.9 kg
[~2024-12-25 14:49] MED LIST changes: +CEFD300C2 PO; +FLUO60TA7 PO
--- NOTE | 2024-12-25 15:33 | ED.PDOC ---
General HPI Comments 34 y.o female presents to the ED for a chief complaint of urgency associated with frequency and strong urine odor that started last night. Patient reports she was seen at this ED on 12/04/24 for similar symptoms, was admitted for 4 days due to UTI becoming sepsis and drug reaction to Macrobid. Patient denies any hematuria, fever, chills, nausea, vomiting, or abdominal pain. She mentions no other medical history. Chief Complaint: Urinary Time Seen by MD: 15:19 Primary Care Provider: DENIES Reviewed notes: Nurses Notes, Medications, Allergies Allergies: Coded Allergies: Shellfish Allergy (Verified Allergy, Severe, 12/06/24) Nitrofurantoin (Verified Allergy, Intermediate, VOMIT, 12/06/24) Home Meds Active Scripts Cefdinir (Cefdinir) 300 Mg Cap, 1 CAP PO BID for 7 Days, #14 CAP Prov:CARITO LIRIANO NP 12/08/24 Nitrofurantoin Monohydrate Mac (Macrobid) 100 Mg Cap, 100 MG PO BID for 7 Days, #14 CAP Prov:ELSY SANDERSON MD 12/04/24 Reported Medications Fluoxetine HCl (Fluoxetine) 60 Mg Tab, 50 MG PO DAILY for anxiety, TAB 12/07/24 Information Source: Patient Mode of Arrival: Ambulatory Severity: Moderate Timing: Hours Duration: Since onset Onset: Spontaneous Symptoms: Frequency, Urgency History of: UTI Location: None associated signs and symptoms: Frequency, Urgency Past Medical History PAST MEDICAL HISTORY: Depression, UTI'S Surgical History: Denies all surgeries PAINTER PLATE 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: No 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 History Family History Family History: Family hx of DM, Family hx of HTN Social History Smoker: Non-Smoker Alcohol: Denies ETOH Use Drugs: Denies Drug Use Lives In: Home Constitutional: denies: chills, diaphoresis, fatigue, fever, malaise, sweats, weakness, others EENTM: denies: blurred vision, double vision, ear bleeding, ear discharge, ear drainage, ear pain, ear ringing, eye pain, eye redness, hearing loss, mouth pain, mouth swelling, nasal discharge, nose bleeding, nose congestion, nose pain, photophobia, tearing, throat pain, throat swelling, voice changes, others Respiratory: denies: cough, hemoptysis, orthopnea, SOB at rest, shortness of breath, SOB with excertion, stridor, wheezing, others Cardiovascular: denies: chest pain, dizzy spells, diaphoresis, Dyspnea on exertion, edema, irregular heart beat, left arm pain, lightheadedness, palpitations, PND, syncope, others Gastrointestinal: denies: abdomen distended, abdominal pain, blood streaked bowels, constipated, diarrhea, dysphagia, difficulty swallowing, hematemesis, melena, nausea, poor appetite, poor fluid intake, rectal bleeding, rectal pain, vomiting, others Genitourinary: reports: frequency, urgency; denies: abnormal vagina bleeding, burning, dyspareunia, dysuria, flank pain, hematuria, incontinence, pain, , vagina discharge, others Neurological: denies: dizziness, fainting, headache, left sided numbness, left sided weakness, numbness, paresthesia, pre-existing deficit, right sided numbness, right sided weakness, seizure, speech problems, tingling, tremors, we akness, others Musculoskeletal: denies: back pain, gout, joint pain, joint swelling, muscle pain, muscle stiffness, neck pain, others Integumetry: denies: bruises, change in color, change in hair/nails, dryness, laceration, lesions, lumps, rash, wounds, others Allergic/Immunocompromised: denies: Difficulty Healing, Frequent Infections, Hives, Itching, others Hematologic/Lymphatic: denies: anemia, blood clots, easy bleeding, easy bruising, swollen glands, others Endocrine: denies: excessive hunger, excessive sweating, excessive thirst, excessive urination, flushing, intolerance to cold, intolerance to heat, unexplained weight gain, unexplained weight loss, others Psychiatric: denies: anxiety, bipolar disorder, depression, hopeless, panic disorder, schizophrenia, sleepless, suicidal, others All Other Systems: Reviewed and Negative Physical Exam General Appearance: No Apparent Distress HEENT: Normal ENT Inspection, Pharynx Normal, TMs Normal Neck: Full Range of Motion, Non-Tender, Normal, Normal Inspection Respiratory: Chest Non-Tender, Lungs Clear, No Accessory Muscle Use, No Respiratory Distress, Normal Breath Sounds Cardiovascular: No Edema, No JVD, No Murmur, No Gallop, Normal Peripheral Pulses, Regular Rate/Rhythm Breast Exam: Deferred Gastrointestinal: No Organomegaly, Non Tender, No Pulsatile Mass, Normal Bowel Sounds, Soft Genitalia: Deferred Pelvic: Deferred Rectal: Deferred Extremities: No calf tenderness, Normal capillary refill, Normal inspection, Normal range of motion, Non-tender, No pedal edema Musculoskeletal : Apperance: Normal Neurologic: Alert, 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 Was a procedure done?: No Differential Diagnosis Kidney stone (Female): N/A Urinary Problem (Female): PID, Urinary retention, Urolithiasis, UTI, Vaginitis X-Ray, Labs, Meds, VS Vital Signs Date Time Temp Pulse Resp B/P (MAP) Pulse Ox O2 Delivery O2 Flow Rate FiO2 12/25/24 15:00 97.9 65 14 123/79 (94) 99 97.9 Lab Test 12/25/24 15:35 Range/Units Urine Color Colorless Yellow Urine Clarity Clear Clear Urine pH 7.0 5.0-9.0 Urine Specific [place] 1.010 1.001-1.035 Urine Protein Negative Negative Urine Ketones Negative Negative Urine Blood Negative Negative /uL Urine Nitrite Negative Negative Urine Bilirubin Negative Negative Urine Urobilinogen Normal Negative mg/dL Urine Leukocyte Esterase Negative Negative /uL Urine RBC 1 0 - 4 /hpf Urine Microscopic WBC 1 0-5 /HPF Urine Squamous Epithelial Cells Few <5 /hpf Urine Bacteria None seen None Seen /hpf Urine Glucose Normal Normal mg/dL Time of 1ST Reevaluation: 15:32 Reevaluation 1ST: Unchanged Patient Education/Counseling: Diagnosis, Treatment, Prognosis Family Education/Counseling: No Family Present SEPSIS Sepsis Screen Date sepsis recognized/suspect: Dec 25, 2024 Time Sepsis recognized/suspect: 1448 Recent Procedure: No On Antibiotic Therapy: No Respiratory Rate >20: No Heart Rate >90: No Temp<36 C (96.8 F) or >38.3 C: No SBP <90 or MAP <65 mmHG: No New Acute Mental Status Change: No Is the patient on CPAP, BIPAP,: No Vital Signs Date Time Temp Pulse Resp B/P (MAP) Pulse Ox O2 Delivery O2 Flow Rate FiO2 12/25/24 15:00 97.9 65 14 123/79 (94) 99 97.9 Departure 1 Departure Time of Disposition: 15:59 Impression: Primary Impression: Dysuria Disposition: HOME / SELF CARE / HOMELESS Condition: Fair Discharged With: Self Critical Care Note Critical Care Time?: No Stability Stability form required: No I personally scribed for MELA ZUÑIGA MD ([email or web address]) on 12/25/24 at 15:33. Electronically submitted by Zahraa Murguia ([facility]). MELA ZUÑIGA MD Dec 25, 2024 15:33
[2024-12-25 15:43] LABS: Urine Protein, UAD Negative (Negative)
[2024-12-25 16:25] VITALS: BP 113/84; PULSE 73; RESP 18; TEMP 98.7; O2SAT 96
== END 2024-12-25 16:25 | disposition home or self-care (01) ==
LOC: ER 14:49
DX: R30.0 Dysuria (principal); F32.A Depression, unspecified; Z87.440 Personal history of urinary (tract) infections; Z88.1 Allergy status to other antibiotic agents; Z79.899 Other long term (current) drug therapy
CPT/HCPCS: 81001